=== PATIENT | male | born 1985 | race Caucasian/White ===

== ENCOUNTER 2017-04-21 00:10 | Emergency (ER) | payer BC ==
[~2017-04-21] VITALS: Ht 172.7 cm; Wt 76.9 kg
[2017-04-21 00:19] VITALS: TEMP 36.3; Ht 172.7 cm; Wt 76.9 kg
[2017-04-21] MEDS ORDERED: SODIUM CHLORIDE 0.9% 1000ML 1,000 ML IV STA ×2 (00:51)
[2017-04-21] MEDS ORDERED: MoRPHine SULFATE 4 MG/ML 1 ML CARP\\VIAL IV STA (00:51)
[2017-04-21] MEDS ORDERED: KETOROLAC TROMETHAMINE 30 MG/ML VIAL IV STA (00:51)
[2017-04-21 00:59] LABS: BASO % 0.5 %; BASO ABS # 0.05 K/uL (0-0.2); COMPLETE YES; EOS % 2.2 %; HEMATOCRIT 43.3 % (42-52); IG% 0.3 %; LYMPH % 34.2 %; LYMPH ABS # 3.74 K/uL (1.2-3.4); MEAN CELL VOLUME 84.7 fL (80-100); MEAN CORPUSCULAR HEMOGLOBIN 29.5 pg (25-34); MEAN CORPUSCULAR HGB CONC 34.9 g/dl (32-36); MEAN PLATELET VOLUME 9.8 fL (7.4-10.4); MONO % 7.9 %; NEUT % 54.9 %; PLATELET COUNT 290 K/uL (130-400); RED BLOOD COUNT 5.11 M/uL (4.7-6.1); WHITE BLOOD COUNT 10.92 K/uL (4.8-10.8)
[2017-04-21 01:17] LABS: BUN/CREATININE RATIO 8.9 (10-20); CALCIUM 9.6 mg/dl (8.5-10.1); CREATININE 1.2 mg/dl (0.60-1.40); POTASSIUM 3.4 mmol/L (3.5-5.1)
[2017-04-21 01:20] LABS: ALB/GLOB RATIO 1.4 (0.9-2)
[2017-04-21] MEDS ORDERED: ONDANSETRON INJ 2 MG/ML 2 ML VIAL IV STA (01:28)
[2017-04-21] MEDS ORDERED: ONDANSETRON INJ 2 MG/ML 2 ML VIAL ONE (01:30)
[2017-04-21] MEDS ORDERED: POTASSIUM CHLORIDE 10 MEQ TABCR PO STA (01:44)
[2017-04-21 02:07] LABS: URINE APPEARANCE CLOUDY (CLEAR); URINE BILIRUBIN NEG (NEG); URINE COLOR DK YELLOW; URINE EPITHELIAL CELL AUTO >30 /lpf (0-5); URINE NITRITE NEG (NEG); URINE PH 6.5 (4.5-7.5); URINE SPECIFIC GRAVITY 1.031 (1.000-1.030); UROBILINOGEN NEG (NEG); ZZUR CULT IF INDIC CLEAN CATCH NO
[2017-04-21 02:11] VITALS: BP 115/71; PULSE 84; O2SAT 98
[2017-04-21 02:11] LABS: MANUAL MICROSCOPIC REQUIRED? NO; REVIEW REQ? YES
--- NOTE | 2017-04-21 02:42 | EMERGENCY ROOM VISIT NOTE ---
History First contact with patient: 00:48 Chief Complaint: ABDOMINAL PAIN Stated Complaint: RLQ PAIN,NAUSEA,VOMITING History of Present Illness The patient is a 32 year old male who presents to the Emergency Room with complaints of sudden onset of right flank pain that raised his groin for the past hour nausea and vomiting. Pain currently 9 out of 10. Nothing makes it better or worse. Patient denies chest pain, dyspnea, fever, chills, neck pain, testicular pain. No history kidney stones. No injury to the area. Review of Systems See HPI for pertinent positives & negatives. A total of 10 systems reviewed and were otherwise negative. Past Medical/Surgical History Tonsillectomy Social History Smoking Status: Current Every Day Smoker Drug Use: none Marital Status: Housing Status: lives with family Occupation Status: employed Current/Historical Medications No Active Prescriptions or Reported Meds Allergies Coded Allergies: Clarithromycin (Verified Allergy, Unknown, hives, 04/21/17) Physical Exam Vital Signs Date Time Temp Pulse Resp B/P (MAP) Pulse Ox O2 Delivery O2 Flow Rate FiO2 04/21/17 02:11 84 18 115/71 98 Room Air 04/21/17 01:45 69 16 128/70 100 Room Air 04/21/17 00:19 36.3 76 32 121/78 100 Room Air Physical Exam VITALS: Vitals are noted on the nurse's note and reviewed by myself. Vital signs stable. GENERAL: Pleasant male writhing in pain, in no acute distress, nondiaphoretic, well-developed well-nourished. SKIN: Capillary reflex less than 2 seconds. HEENT: Normocephalic. PERRLA. EOMI. Nares patent. Mucous membranes moist. Neck is supple without nuchal rigidity. HEART: Regular rate and rhythm without murmurs gallops or rubs. LUNGS: Clear to auscultation bilaterally without wheezes, rales or rhonchi. No retractions or accessory muscle use. ABDOMEN: Positive bowel sounds x 4. Normal tympanic percussion. Soft, nontender, without masses or organomegaly. [place] sign negative. No guarding or rebound tenderness. No CVA tenderness MUSCULOSKELETAL: No gross musculoskeletal defects. NEURO: Patient was alert and oriented to person place and time. Normal sensation to light and sharp touch. No focal neurological deficits. Medical Decision & Procedures Laboratory Results 04/21/17 00:35 Red Blood Count 5.11, Mean Corpuscular Volume 84.7, Mean Corpuscular Hemoglobin 29.5, Mean Corpuscular Hemoglobin Concent 34.9, Mean Platelet Volume 9.8, Neutrophils (%) (Auto) 54.9, Lymphocytes (%) (Auto) 34.2, Monocytes (%) (Auto) 7.9, Eosinophils (%) (Auto) 2.2, Basophils (%) (Auto) 0.5, Neutrophils # (Auto) 6.00, Lymphocytes # (Auto) 3.74, Monocytes # (Auto) 0.86, Eosinophils # (Auto) 0.24, Basophils # (Auto) 0.05 04/21/17 00:35 Test 04/21/17 00:35 04/21/17 01:50 White Blood Count 10.92 K/uL (4.8-10.8) Red Blood Count 5.11 M/uL (4.7-6.1) Hemoglobin 15.1 g/dL (14.0-18.0) Hematocrit 43.3 % (42-52) Mean Corpuscular Volume 84.7 fL (80-100) Mean Corpuscular Hemoglobin 29.5 pg (25-34) Mean Corpuscular Hemoglobin Concent 34.9 g/dl (32-36) Platelet Count 290 K/uL (130-400) Mean Platelet Volume 9.8 fL (7.4-10.4) Neutrophils (%) (Auto) 54.9 % Lymphocytes (%) (Auto) 34.2 % Monocytes (%) (Auto) 7.9 % Eosinophils (%) (Auto) 2.2 % Basophils (%) (Auto) 0.5 % Neutrophils # (Auto) 6.00 K/uL (1.4-6.5) Lymphocytes # (Auto) 3.74 K/uL (1.2-3.4) Monocytes # (Auto) 0.86 K/uL (0.11-0.59) Eosinophils # (Auto) 0.24 K/uL (0-0.5) Basophils # (Auto) 0.05 K/uL (0-0.2) RDW Standard Deviation 39.2 fL (36.4-46.3) RDW Coefficient of Variation 12.6 % (11.5-14.5) Immature Granulocyte % (Auto) 0.3 % Immature Granulocyte # (Auto) 0.03 K/uL (0.00-0.02) Anion Gap 9.0 mmol/L (3-11) Est Creatinine Clear Calc Drug Dose 84.7 ml/min Estimated GFR () 91.5 Estimated GFR (Non- 79.0 BUN/Creatinine Ratio 8.9 (10-20) Calcium Level 9.6 mg/dl (8.5-10.1) Total Bilirubin 0.4 mg/dl (0.2-1) Aspartate Amino Transf (AST/SGOT) 21 U/L (15-37) Alanine Aminotransferase (ALT/SGPT) 27 U/L (12-78) Alkaline Phosphatase 60 U/L (45-117) Total Protein 7.9 gm/dl (6.4-8.2) Albumin 4.6 gm/dl (3.4-5.0) Globulin 3.3 gm/dl (2.5-4.0) Albumin/Globulin Ratio 1.4 (0.9-2) Lipase 101 U/L (73-393) Urine Color DK YELLOW Urine Appearance CLOUDY (CLEAR) Urine pH 6.5 (4.5-7.5) Urine Specific [place] 1.031 (1.000-1.030) Urine Protein TRACE (NEG) Urine Glucose (UA) NEG (NEG) Urine Ketones 1+ (NEG) Urine Occult Blood 2+ (NEG) Urine Nitrite NEG (NEG) Urine Bilirubin NEG (NEG) Urine Urobilinogen NEG (NEG) Urine Leukocyte Esterase NEG (NEG) Medications Administered Medications (Trade) Dose Ordered Sig/Carmel Route Start Time Stop Time Status Last Admin Dose Admin Ketorolac Tromethamine (Toradol Inj) 30 mg NOW STAT IV 04/21/17 00:51 04/21/17 00:52 DC 04/21/17 01:28 30 MG Morphine Sulfate (MoRPHine SULFATE INJ) 4 mg NOW STAT IV 04/21/17 00:51 04/21/17 00:52 DC 04/21/17 01:38 4 MG Sodium Chloride 1,000 ml @ 999 mls/hr Q1H1M STAT IV 04/21/17 00:51 04/21/17 01:51 DC 04/21/17 01:38 999 MLS/HR Sodium Chloride 1,000 ml @ 125 mls/hr Q8H STAT IV 04/21/17 00:51 04/21/17 08:50 04/21/17 01:38 125 MLS/HR Ondansetron HCl (Zofran Inj) 4 mg NOW STAT IV 04/21/17 01:28 04/21/17 01:29 DC 04/21/17 01:28 4 MG ED Course Prior records/ancillary studies reviewed. Triage Nursing notes reviewed. Additional history obtained from the family. The patient's history was concerning for right flank pain. Differential diagnosis: Etiologies such as renal colic, appendicitis, diverticulitis, mesenteric ischemia, aortic pathology, infections, inflammatory bowel disease, PUD, biliary pathology, UTI, as well as others were entertained. Physical examination findings: As above. ER treatment provided: Toradol, morphine, Zofran, IV fluids On reassessment the patient felt better. Diagnostic interpretation by me: The labs revealed hypokalemia and this is released orally. Urinalysis revealed hematuria. There was no sign of UTI. Imaging studies: CT of the abdomen and pelvis right renal stone It appears that the patient has isolated renal colic from a right sided stone. Patient's pain was under control. He is advised to strain his urine. Patient was neurovascularly and neurologically intact. Patient is well-appearing. Patient is tolerating fluids. Patient did not have an acute abdomen on exam. Patient was ambulating without difficulties. Patient was advised to follow-up with family care and urology in a few days or here in the ER sooner for severe pain, fevers, chest pain, abdominal pain, worsening signs or symptoms or as needed. By the evaluation outlined above emergent etiologies such as appendicitis, diverticulitis, mesenteric ischemia, aortic pathology, infections, inflammatory bowel disease, PUD, biliary pathology, UTI, as well as others were deemed relatively unlikely. The pt informed about the findings as listed above. All questions were answered and pleased with the treatment. Return instructions were outlined and the patient was discharged in stable condition. Outpatient prescription management: Oxy IR 5mg 1-2 po Q4 hrs prn Zofran Referral: The pt was referred to [facility] for follow up care regarding their stone. or The patient was referred back to their primary care physician for follow-up in 2 to 3 days for a recheck of the current condition. Case reviewed with my attending. Medical Decision As above Impression Primary Impression: Renal colic on right side Additional Impression: Hypokalemia Departure Information Dispostion Home / Self-Care Condition GOOD Prescriptions No Active Prescriptions or Reported Meds Referrals Dior Ivory C.R.N.P. (PCP) Patient Instructions My [facility] Additional Instructions DO NOT drive, drink alcohol, operate machinery, or perform dangerous activities today. You were given medications in the ER that can affect your ability to safely function or operate a vehicle. Oxycodone Immediate Release (OxyIR) 5mg: Take 1-2 pills every four hours for pain. Avoid alcohol, operating machinery or dangerous equipment, working on ladders or roofs, DRIVING, or situations where being under the influence may be dangerous. It is recommended to use an [id number] stool softener such as Colace, 100mg twice daily while taking this medication to avoid constipation. Zofran 4 mg: Take one every six hours as needed for nausea. Avoid alcohol, operating machinery or dangerous equipment, working on ladders or roofs, DRIVING , or situations where being under the influence may be dangerous. Ibuprofen(Motrin, Advil) may be used for fever or pain. Use 600mg every six hours as needed. Take with food. Avoid using more than 2400mg in a 24 hour period. Do not use 2400mg per day for more than three consecutive days without physician direction. Prolonged inappropriate use can lead to stomach upset or ulcers. This medication can be taken if you need to drive, work, or perform activities which may be dangerous when taking narcotic pain medication. (AND/OR) Acetaminophen(Tylenol) may be used for fever or pain. Use 1000mg every six hours as needed. Avoid using more than 3000mg in a 24 hour period. This medication can be taken if you need to drive, work, or perform activities which may be dangerous when taking narcotic pain medication. Strain your urine and collect all the stones or debris for the urologists. Rest and avoid strenuous activity until your stone passes and symptoms resolve. Drink plenty of fluids. Continue current medications. Return to the ER for worsening abdominal or back pain, vomiting, fevers, passing out, or as needed. Follow up with urology in 2-3 days, call for an appointment. Problem Qualifiers
[2017-04-21] MEDS ORDERED: OXYC1TAB3 PO ×2 (02:44→02:56)
[2017-04-21] MEDS ORDERED: OXYCODONE IR HOME PACK PO ONE (03:11)
[2017-04-21] MEDS ORDERED: ONDANSETRON HOME PACK 4MG OD TAB ONE (03:11)
--- NOTE | 2017-04-21 07:01 | DIAGNOSTIC IMAGING REPORT ---
CT OF THE ABDOMEN AND PELVIS WITHOUT CONTRAST, STONE PROTOCOL CLINICAL HISTORY: Right lower quadrant pain. Evaluate for stone. COMPARISON STUDY: None. TECHNIQUE: Helical axial images of the abdomen and pelvis were obtained without IV or oral contrast according to renal stone protocol. A dose lowering technique was utilized adhering to the principles of ALARA. FINDINGS: There is minimal right hydroureteronephrosis due to a 3 mm calculus at the right ureterovesical junction. The left renal pyramids are slightly dense. No additional discrete calculi are present. There are no left ureteral calculi. Evaluation of the remainder of the abdomen and pelvis is suboptimal on this unenhanced exam. The liver, spleen, adrenal glands and pancreas are normal. There is no evidence for a bowel obstruction. The appendix is normal. There is no ascites or lymphadenopathy. A 3 x 2.1 cm bony excrescence arising from the right pubic bone and extending laterally is contiguous with the medullary space. This represents an osteochondroma. There is grade I anterolisthesis of L5 on S1 due to bilateral L5 pars defects. IMPRESSION: 1. 3 mm right ureterovesical junction calculus with minimal hydroureteronephrosis. 2. Grade I anterolisthesis of L5 on S1 due to bilateral L5 pars defects. 3. 3 x 2.1 cm bony excrescence arising from the right pubic bone and extending laterally which is consistent with an osteochondroma. Electronically signed by: Vinny Murcia M.D. 04/21/2017 6:59 AM Dictated Date/Time: 04/21/2017 6:53 AM
== END 2017-04-21 03:14 | disposition home or self-care (01) ==
LOC: C.EDB 00:11
DX: N23 Unspecified renal colic (principal); E87.6 Hypokalemia; F17.210 Nicotine dependence, cigarettes, uncomplicated

== ENCOUNTER → 2017-05-02 | Outpatient (CLI) | payer BC ==
[~2017-05-02] MED LIST: OXYC1TAB3 PO
== END | disposition home or self-care (01) ==
LOC: C.LABSPEC 17:01
PROVIDERS: ATTEND Urology
DX: N20.0 Calculus of kidney (principal)